=== PATIENT | female | born 1990 | race Two or more races ===

== ENCOUNTER 2017-07-10 12:51 | Emergency (ER) | payer OTHER ==
[2017-07-10 12:59] VITALS: BP 141/74
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
== END 2017-07-10 14:40 | disposition home or self-care (01) ==
LOC: ER 12:51
DX: S46.912A Strain of unspecified muscle, fascia and tendon at shoulder and upper arm level, left arm, initial encounter (principal); M54.2 Cervicalgia; M79.652 Pain in left thigh; V49.40XA Driver injured in collision with unspecified motor vehicles in traffic accident, initial encounter; Y92.481 Parking lot as the place of occurrence of the external cause
CPT/HCPCS: 99283

== ENCOUNTER 2018-07-31 05:02 | Inpatient (IN) | payer MEDICAID, OTHER ==
[2018-07-29 10:24] LABS: ABSOLUTE EOSINOPHILS # (AUTO) 0.1 10^3/uL (0.0-0.6); ABSOLUTE LYMPHOCYTES (AUTO) 1.9 10^3/uL (0.5-4.7); ABSOLUTE MONOCYTES (AUTO) 0.5 10^3/uL (0.1-1.4); ABSOLUTE NEUT (AUTO) 5.5 10^3/uL (1.7-8.2); BASOPHILS % (AUTO) 0.2 % (0-2); EOSINOPHILS % (AUTO) 0.7 % (0-6); HEMATOCRIT 35.4 % (36.0-47.0); HEMOGLOBIN 11.9 g/dL (12.0-15.5); MEAN CORPUSCULAR HEMOGLOBIN 28.4 pg (27.0-33.4); MEAN CORPUSCULAR HGB CONC 33.6 g/dL (32.0-36.0); MEAN CORPUSCULAR VOLUME 84 fl (80-97); MONOCYTES % (AUTO) 6.3 % (3-13); PLATELET COUNT 154 10^3/uL (150-450); RED CELL DISTRIBUTION WIDTH 15.7 % (11.5-14.0); SEGMENTED NEUTROPHILS % (AUTO) 68.8 % (42-78); TOTAL CELLS COUNTED % (AUTO) 100 %; WHITE BLOOD COUNT 7.9 10^3/uL (4.0-10.5)
[2018-07-29 10:24] LABS: APPEARANCE,URINE CLEAR; BILIRUBIN,URINE NEGATIVE (NEGATIVE); COLOR,URINE YELLOW; GLUCOSE, URINE NEGATIVE (NEGATIVE); KETONES,URINE NEGATIVE (NEGATIVE); LEUKOCYTE ESTERASE,URINE NEGATIVE (NEGATIVE); NITRITE,URINE NEGATIVE (NEGATIVE); PROTEIN,URINE NEGATIVE (NEGATIVE); URINE SPECIFIC GRAVITY 1.013; UROBILINOGEN,URINE NEGATIVE mg/dL (<2.0)
[2018-07-29 10:57] LABS: URINE AMPHETAMINES SCREEN NEGATIVE; URINE BARBITURATES SCREEN NEGATIVE; URINE BENZODIAZEPINES SCREEN NEGATIVE; URINE COCAINE SCREEN NEGATIVE; URINE MARIJUANA (THC) SCREEN NEGATIVE; URINE METHADONE SCREEN NEGATIVE; URINE PHENCYCLIDINE SCREEN NEGATIVE
[2018-07-31] MEDS ORDERED: RINGERS SOLUTION,LACTATED 1,000 ML IV PRN ×2 (06:08→12:40)
[2018-07-31] MEDS ORDERED: CEFAZOLIN 2 GM/D5W RTU 2 GM/50 ML RTUPB IV ONE (06:15)
[2018-07-31] MEDS ORDERED: RINGERS SOLUTION,LACTATED 1,000 ML IV ONE (06:15)
[2018-07-31] MEDS ORDERED: EPHEDRINE SULFATE INJ 50 MG/1 ML AMPULE ONE (10:23)
[2018-07-31] MEDS ORDERED: MIDAZOLAM 2 MG/2 ML INJ ONE (10:23)
[2018-07-31] MEDS ORDERED: OXYTOCIN 10 UNIT/ML VIAL ONE ×2 (10:23→12:12)
[2018-07-31] MEDS ORDERED: FENTANYL CITRATE INJ/PF 100 MCG/2 ML AMPUL ONE ×3 (10:23→12:58)
[2018-07-31] MEDS ORDERED: BUPIVACAINE HCL/DEX-WATER/PF 15 MG/2 ML AMPULE ONE (10:40)
[2018-07-31] MEDS ORDERED: LIDOCAINE 2% INJ-PF (20 MG/ML) 2 ML AMPUL ONE ×2 (11:12→12:43)
[2018-07-31] MEDS ORDERED: BUPIVACAINE HCL 0.5 % INJ/PF 30 ML SDV ONE (11:15)
[2018-07-31] MEDS ORDERED: ONDANSETRON HCL INJ/PF 4 MG/2 ML SDV IV PRN (12:33)
[2018-07-31] MEDS ORDERED: MORPHINE SULFATE 10 MG/ML INJ IV PRN (12:33)
[2018-07-31] MEDS ORDERED: FENTANYL CITRATE INJ/PF 100 MCG/2 ML AMPUL IV PRN ×3 (12:33)
[2018-07-31] MEDS ORDERED: DIPHENHYDRAMINE HCL 50 MG/ML VIAL IV PRN (12:33)
[2018-07-31] MEDS ORDERED: PROMETHAZINE HCL INJ 25 MG/1 ML VIAL IV PRN ×3 (12:33→12:40)
[2018-07-31] MEDS ORDERED: MEPERIDINE HCL/PF INJ 25 MG/1 ML DISP.SYRIN IV PRN (12:33)
[2018-07-31] MEDS ORDERED: OXYTOCIN/NORMAL SALINE 20 UNIT/1,000 ML RTUINJ IV PRN (12:40)
[2018-07-31] MEDS ORDERED: DIPH/PERTUSS(ACELL)/TETANUS VAC/PF 0.5 ML SYR (>=10YO) IM PRN (12:40)
[2018-07-31] MEDS ORDERED: ACETAMINOPHEN 325 MG TABLET PO PRN (12:40)
[2018-07-31] MEDS ORDERED: MEASLES,MUMPS&RUBELLA VACC/PF 0.5 ML VIAL SUBCUT PRN (12:40)
[2018-07-31] MEDS ORDERED: ACETAMINOPHEN 1,000 MG/100 ML RTUPB IV PRN (12:40)
[2018-07-31] MEDS ORDERED: OXYCODONE-ACETAMINOPHEN 5-325 MG TABLET PO PRN (12:40)
[2018-07-31] MEDS ORDERED: DEXAMETHASONE SOD PHOSPHATE INJ 4 MG/1 ML VIAL ONE (12:43)
[2018-07-31] MEDS ORDERED: SUCCINYLCHOLINE CHLORIDE INJ 200 MG/10 ML VIAL ONE (12:43)
[2018-07-31] MEDS ORDERED: PHENYLEPHRINE HCL INJ/PF 10 MG/1 ML SDV ONE (12:43)
[2018-07-31] MEDS ORDERED: ONDANSETRON HCL INJ/PF 4 MG/2 ML SDV ONE (12:43)
--- NOTE | 2018-07-31 12:43 | PDOC DELIVERY SUMMARY ---
Delivery Summary - Maternal Hx : II Ruptured Membranes: AROM Time of Rupture: 12:02 Fluids: Clear - Delivery Presentation: Vertex Heart Rate Monitoring: Done Pre-Operatively Support Person Present: No Location: OR : Scheduled, Repeat Placenta: Within Normal Limits Delivery of Placenta Date: 07/31/18 Delivery of Placenta Time: 12:05 - Medications Type of Anesthesia:: GA - Assess and Care Baby 1 Male Delivery of Date: 07/31/18 Delivery of Infant Time: 12:04 at 1 minute: 5 at 5 minutes: 8 Preprinted Number On Band: [id number] Infant Skin to Skin: No To Nursery At: 12:12 Mode of Transport: [facility] - Delivery Personnel Nursery RN: MARTHA LOCKETT RN MD: CECI CISNEROS
--- NOTE | 2018-07-31 12:48 | Operative Report ---
Operative Report DATE OF SURGERY: 07/31/18 PREOPERATIVE DIAGNOSIS: Patient desires repeat to prevent risk of marilee rine rupture POSTOPERATIVE DIAGNOSIS: Same plus very dense scarring over the lower uterine segment to the anterior abdominal wall fascia OPERATION: Repeat via low transverse uterine incision SURGEON: CECI CISNEROS ANESTHESIA: GA TISSUE REMOVED OR ALTERED: Placenta COMPLICATIONS: None ESTIMATED BLOOD LOSS: 250 cc INTRAOPERATIVE FINDINGS: Viable male delivered. Vertex presentation. Normal tubes and ovaries. Dense scarring of the lower uterine segment to the anterior abdominal wall fascia from her previous . A vertical incision may be considered with the next to avoid of the scar tissue. PROCEDURE: Patient was taken to the OR and placed in supine position after her spinal anesthesia. She is prepared and draped in sterile fashion. Infante was placed for drainage of the bladder. Low transverse incision was made and carried down the level of the fascia. The fascial incision was made with knife and extended bilaterally with curved Bob scissors. The fascia was off the rectus muscles using sharp and blunt dissection. The rectus muscles are in the midline. The peritoneum was entered without incident. Bladder blade was placed in uterine segment was identified. The lower uterine segment was freed up sharply from the anterior abdominal wall fascia as much as possible. Bladder blade was placed low transverse uterine incision was made with the knife and extended with fingertips. The baby was delivered with some fundal pressure. Mouth and nose were suctioned free. The cord is doubly clamped and cut. Baby is passed off to the stockfeed miller in attendance. The placenta was manually extracted with trailing membranes. The uterus was externalized wrapped in a moist lap sponge. Uterine contents wiped free. Uterus was closed with a running locking layer of 0 chromic suture using the second layer to imbricate the first completing a double layer closure of the uterus. There was no lower serosa closed because of the previous scarring. Inspection of the bladder showed no evidence of injury. There was no blood in the urine. The pelvis was irrigated and suctioned free of fluid the uterus was replaced in the abdomen. The abdominal wall peritoneum was closed with running 2-0 chromic stitch. Fascia was closed with a running 0 Vicryl in 2 segments. Lupillo's layer was brought together with 0 plain gut stitch and the skin was closed with running subcuticular 4-0 undyed Vicryl stitch. The wound was dressed mother and baby did well. With a subsequent I would consider a vertical incision because of the dense adhesions over the lower uterine segment makes a low transverse very challenging.
[2018-07-31] MEDS ORDERED: ACETAMINOPHEN 1,000 MG/100 ML RTUPB IV ONE (13:03)
[2018-07-31] MEDS ORDERED: HYDROMORPHONE HCL INJ/PF 2 MG/ML AMPULE ONE (13:16)
[2018-07-31] MEDS: HYDROMORPHONE HCL INJ/PF 2 MG/ML AMPULE IV PRN ×2 (13:25→16:47)
[2018-07-31] MEDS ORDERED: OXYTOCIN/NORMAL SALINE 20 UNIT/1,000 ML RTUINJ ONE (13:33)
[2018-07-31] MEDS ORDERED: KETOROLAC TROMETHAMINE INJ/PF 30 MG/1 ML SDV ONE (14:04)
[2018-07-31] MEDS: KETOROLAC TROMETHAMINE INJ/PF 30 MG/1 ML SDV IV SCH ×2 (14:06→21:57)
[2018-07-31] MEDS: DOCUSATE SODIUM 100 MG CAPSULE PO SCH (22:08)
[2018-08-01] MEDS: OXYCODONE-ACETAMINOPHEN 5-325 MG TABLET PO PRN ×4 (03:08→21:26)
[2018-08-01] MEDS: KETOROLAC TROMETHAMINE INJ/PF 30 MG/1 ML SDV IV SCH (05:43)
[2018-08-01 06:33] LABS: HEMATOCRIT 29.5 % (36.0-47.0); MEAN CORPUSCULAR HEMOGLOBIN 28.4 pg (27.0-33.4); MEAN CORPUSCULAR HGB CONC 32.9 g/dL (32.0-36.0); MEAN CORPUSCULAR VOLUME 86 fl (80-97); PLATELET COUNT 131 10^3/uL (150-450); RED BLOOD COUNT 3.41 10^6/uL (3.72-5.28); RED CELL DISTRIBUTION WIDTH 15.6 % (11.5-14.0); WHITE BLOOD COUNT 12.3 10^3/uL (4.0-10.5)
[2018-08-01 06:36] LABS: HEMOGLOBIN 9.7 g/dL (12.0-15.5)
[2018-08-01] MEDS: PRENATAL VITAMIN W DHA CAPSULE PO SCH (09:12)
[2018-08-01] MEDS: SIMETHICONE 80 MG TAB.CHEW PO PRN (09:12)
[2018-08-01] MEDS: DOCUSATE SODIUM 100 MG CAPSULE PO SCH ×2 (09:12→16:59)
--- NOTE | 2018-08-01 10:08 | PDOC PROGRESS REPORT ---
Subjective-OB Progress Note for:: 08/01/18 Subjective: tolerating diet, states bleeding is slowing, pain controlled with current meds. denies needs. not passing gas yet. Physical Exam (OB) Vital Signs: Temp Pulse Resp BP Pulse Ox 97.8 F 98 18 110/60 100 08/01/18 08:16 08/01/18 08:16 08/01/18 08:16 08/01/18 08:16 08/01/18 08:16 Intake & Output 07/31/18 08/01/18 08/02/18 06:59 06:59 06:59 Intake Total 100 Output Total 2900 Balance -2800 - Dressing Removed: No Incision: Dressing - op site, Well Approximated - Abdomen Description: Soft Hernia Present: No Bowel Sounds: Hyperactive Fundal Description: Firm Fundal Height: u/u - u/2 - Abdominal Inspection: Normal Distension: No distension Tenderness: Nontender - Extremities Lower extremities: Meek's sign - neg Calf: Normal, Nontender Objective-Diagnostic Laboratory: 08/01/18 06:11 08/01/18 06:11 WBC 12.3 H RBC 3.41 L Hgb 9.7 L D Hct 29.5 L MCV 86 MCH 28.4 MCHC 32.9 RDW 15.6 H Plt Count 131 L Assessment and Plan(PN) - Assessment and Plan (1) S/P repeat low transverse Is this a current diagnosis for this admission?: Yes - Time Spent with Patient Time with patient: Less than 15 minutes Medications reviewed and adjusted accordingly: Yes - Disposition Anticipated Discharge: Home Within: within 48 hours
[2018-08-01] MEDS: IBUPROFEN 800 MG TABLET PO SCH ×3 (12:18→23:40)
[2018-08-02] MEDS: IBUPROFEN 800 MG TABLET PO SCH ×4 (06:07→23:57)
[2018-08-02] MEDS: PRENATAL VITAMIN W DHA CAPSULE PO SCH (10:13)
[2018-08-02] MEDS: OXYCODONE-ACETAMINOPHEN 5-325 MG TABLET PO PRN ×2 (10:13→20:16)
[2018-08-02] MEDS: DOCUSATE SODIUM 100 MG CAPSULE PO SCH ×2 (10:13→17:33)
--- NOTE | 2018-08-02 10:51 | PDOC PROGRESS REPORT ---
Subjective-OB Progress Note for:: 08/02/18 Subjective: 27yo G2 now P2 s/p repeat ppdd. Voiding and without difficulty just started ambulating this AM. Has felt very tired and arms and belly very sore. Pain controlled with medication. No passing gas yet. Denies sob/dizzinness/lightheadness but very fatigue, denies any concerns at this time Physical Exam (OB) Vital Signs: Temp Pulse Resp BP Pulse Ox 98.0 F 78 15 126/80 H 98 08/02/18 07:31 08/02/18 07:31 08/02/18 07:31 08/02/18 07:31 08/02/18 07:31 Intake & Output 08/01/18 08/02/18 08/03/18 06:59 06:59 06:59 Intake Total 100 500 Output Total 2900 Balance -2800 500 - General General Appearance: Appears well In distress: None - PIH/Pre-Eclampsia DTR's: 2 + Clonus: Negative Headache: Absent Epigastric Pain: No Visual Changes: No - Dressing Removed: No Incision: Dressing - op site, Well Approximated Closure Type: Sutures - Lochia Lochia Amount: Scant < 10 ml Lochia Color: Rubra/Red - Abdomen Description: Tender, Soft, Flat Hernia Present: No Fundal Description: Firm, Midline Fundal Height: u/u - u/2 - Respiratory Respiratory Status: No respiratory distress Chest Status: Nontender - Extremities Upper extremity: Normal inspection - bruising Lower extremities: Normal inspection, Edema - Neurological Cognition: Normal Orientation: AAOx4 - Psychological Associated symptoms: Normal affect, Normal mood Objective-Diagnostic Laboratory: 08/01/18 06:11 Assessment and Plan(PN) - Assessment and Plan (1) Acute blood loss anemia Is this a current diagnosis for this admission?: Yes Plan: monitor for s/s of infection increase dietary iron and FeSO4 BID (2) S/P repeat low transverse Is this a current diagnosis for this admission?: Yes Plan: routine pp care, increase ambulation - Time Spent with Patient Time with patient: Less than 15 minutes Medications reviewed and adjusted accordingly: Yes - Disposition Anticipated Discharge: Home Within: within 24 hours
[2018-08-02 13:43] LABS: HEMATOCRIT 29.8 % (36.0-47.0); MEAN CORPUSCULAR HEMOGLOBIN 28.8 pg (27.0-33.4); MEAN CORPUSCULAR HGB CONC 33.4 g/dL (32.0-36.0); MEAN CORPUSCULAR VOLUME 86 fl (80-97); PLATELET COUNT 161 10^3/uL (150-450); RED BLOOD COUNT 3.46 10^6/uL (3.72-5.28); RED CELL DISTRIBUTION WIDTH 15.9 % (11.5-14.0); WHITE BLOOD COUNT 10.2 10^3/uL (4.0-10.5)
[2018-08-02] MEDS: SIMETHICONE 80 MG TAB.CHEW PO PRN (20:16)
[2018-08-03] MEDS: IBUPROFEN 800 MG TABLET PO SCH ×2 (05:43→11:19)
--- NOTE | 2018-08-03 09:01 | PDOC DISCHARGE SUMMARY ---
Final Diagnosis Discharge Date: 08/03/18 - Final Diagnosis (1) Acute blood loss anemia Is this a current diagnosis for this admission?: Yes (2) S/P repeat low transverse Is this a current diagnosis for this admission?: Yes Discharge Data - Discharge Medication Home Medications: Pnv No.95/Ferrous Fum/Folic AC [ Caplet] 1 each PO DAILY 07/17/18 Reason(s) for Admission: Ceasarean Section-Repeat Procedures: NST Intrapartum Procedure(s): Spontaneous Vaginal Delivery - Diagnosis Test Laboratory: Temp Pulse Resp BP Pulse Ox 98.1 F 78 18 114/52 L 97 08/02/18 23:37 08/03/18 08:28 08/03/18 08:28 08/03/18 08:28 08/03/18 08:28 07/29/18 07/29/18 08/01/18 09:32 09:43 06:11 RBC 4.20 3.41 L Hgb 11.9 L 9.7 L D Hct 35.4 L 29.5 L Urine Opiates Screen NEGATIVE 08/02/18 13:29 RBC 3.46 L Hgb 10.0 L Hct 29.8 L Urine Opiates Screen - Discharge information/Instructions Discharge Activity: Balance Activity w/Rest, Pelvic Rest Discharge Diet: Regular Disposition: HOME, SELF-CARE Follow [facility] with: [facility] in: 5, Days
[2018-08-03] MEDS: PRENATAL VITAMIN W DHA CAPSULE PO SCH (10:15)
[2018-08-03] MEDS: DOCUSATE SODIUM 100 MG CAPSULE PO SCH (10:15)
[2018-08-03 11:46] VITALS: BP 119/68
== END 2018-08-03 15:40 | disposition home or self-care (01) | DRG 788 ==
LOC: 2S 05:02
PROVIDERS: ADMIT Obstetrics & Gynecology; ATTEND Obstetrics & Gynecology
PROC: 4A1HX4Z Monitoring of Products of Conception, Cardiac Electrical Activity, External Approach (ICD-10-PCS; 2018-07-31)
PROC: 10D00Z1 Extraction of Products of Conception, Low, Open Approach (ICD-10-PCS; principal; 2018-07-31 09:15)
DX: O34.211 Maternal care for low transverse scar from previous cesarean delivery (principal); O99.213 Obesity complicating pregnancy, third trimester; N85.8 Other specified noninflammatory disorders of uterus; O99.013 Anemia complicating pregnancy, third trimester; Z3A.00 Weeks of gestation of pregnancy not specified; Z37.0 Single live birth
CPT/HCPCS: 1961; 36415; 59025; 80307; 81001; 85025; 85027; 86850; 86900; 86901; 94799; J0131; J0330; J1100; J1170; J1885; J2250; J2370; J2405; J2550; J2590; J3010; J3490; J7120